=== PATIENT | male | born 1935 | race Caucasian/White ===

== ENCOUNTER 2017-10-07 08:46 | Day surgery (SDC) | payer BC ==
[2017-09-30 14:30] LABS: BASOPHILS # (AUTO) 0.1 X10'3 (0-0.2); BASOPHILS % (AUTO) 0.8 % (0-1); EOSINOPHILS # (AUTO) 0.8 X10'3 (0-0.9); EOSINOPHILS % (AUTO) 11.5 % (0-6); LYMPHOCYTES # (AUTO) 1.5 X10'3 (1.1-4.8); LYMPHOCYTES % (AUTO) 20.7 % (21-51); MEAN CORPUSCULAR HEMOGLOBIN 32.6 PG (27.0-31.0); MEAN PLATELET VOLUME 7.8 FL (7.4-10.4); MONOCYTES # (AUTO) 0.5 X10'3 (0-0.9); MONOCYTES % (AUTO) 6.6 % (2-12); NEUTROPHILS # (AUTO) 4.3 X10'3 (1.8-7.7); NEUTROPHILS % (AUTO) 60.4 % (42-75); PRE OP HEMATOCRIT 48.1 % (42.0-52.0); PRE OP HEMOGLOBIN 16.4 g/dL (14.0-17.9); PRE OP PLATELET COUNT 234 X10'3 (140-440); RED BLOOD COUNT 5.01 X10'6 (4.70-6.10); RED CELL DISTRIBUTION WIDTH 12.6 % (11.5-14.5)
[2017-09-30 14:41] LABS: PRE OP PROTIME 26.5 SECONDS (9.0-12.0)
[2017-09-30 14:44] LABS: ALBUMIN 3.9 G/DL (3.4-5.0); ALBUMIN/GLOBULIN RATIO 1.1 (1.1-1.5); ALKALINE PHOSPHATASE 80 IU/L (46-116); BLOOD UREA NITROGEN 31 MG/DL (7-18); BUN/CREATININE RATIO 19.4 (5.4-32.0); CALCIUM 8.7 MG/DL (8.5-10.1); CHLORIDE 104 MMOL/L (99-107); PRE OP ALT 64 U/L (30-65); PRE OP ANION GAP 6 (8-16); PRE OP AST 40 U/L (10-37); PRE OP BILIRUB, TOTAL 0.7 MG/DL (0.0-1.0); PRE OP GLUCOSE 112 MG/DL (70-104); PRE OP POTASSIUM 4.3 MMOL/L (3.4-5.1); PRE OP SODIUM 139 MMOL/L (135-145); TOTAL CARBON DIOXIDE 29.4 MMOL/L (24-32); TOTAL PROTEIN 7.5 G/DL (6.4-8.2); eGFR 42 ML/MIN
[2017-09-30 14:56] LABS: PRE OP INR 2.7 INR
[~2017-10-07] VITALS: Ht 177.8 cm; Wt 85.5 kg
[~2017-10-07 08:46] MED LIST: ACET-2319 PO; BISO1TAB4 PO; CHOL10002 PO; DABI75CA3 PO; DOCUMENT DATE & TIME OF BETA-BLOCKER PO ONE; DRON400T2 PO; EZET1TAB33 PO; FAMC500T18 PO; MAGN400C PO; MULT-1074 PO; TEST200V10 IM; ceFAZolin 2gm in dextrose, iso 100 ML IV ONE; famotidine 20mg tablet PO ONE; ringers solution, lacted 1,000 ML IV SCH
[2017-10-07 09:05] VITALS: BP 155/87
[2017-10-07] MEDS ORDERED: LIDOcaine 0.5% (5mg/ml) 50ml vial ONE (09:39)
[2017-10-07] MEDS ORDERED: ringers solution, lacted 1,000 ML IV SCH (09:44)
[2017-10-07] MEDS ORDERED: meperidine/PF 25mg/ml syringe IV PRN ×2 (09:45)
[2017-10-07] MEDS ORDERED: labetalol 20mg/4ml (5mg/ml) syringe IV PRN (09:45)
[2017-10-07] MEDS ORDERED: hydrALAZINE 20mg/ml inj. IV PRN (09:45)
[2017-10-07] MEDS ORDERED: ondansetron/PF 4mg/2ml inj IV PRN (09:45)
[2017-10-07 09:51] LABS: INR 1.4 INR; PARTIAL THROMBOPLASTIN TIME 46 SECONDS (22-32); PROTHROMBIN TIME 14.7 SECONDS (9.0-12.0)
[2017-10-07] MEDS ORDERED: LIDOcaine 1% (10mg/ml) 2ml vial ONE (09:59)
[2017-10-07] MEDS ORDERED: BUPIVAcaine/PF 2.5 mg/ml (0.25%) 30ml vial ONE ×2 (10:16→10:18)
[2017-10-07] MEDS ORDERED: fentaNYL/PF 50MCG/1 ML 2ML syringe ONE (10:28)
[2017-10-07] MEDS ORDERED: midazolam 2 mg/2 ml injection ONE ×2 (10:28)
[2017-10-07 11:00] VITALS: BP 133/83
[2017-10-07 11:10] VITALS: BP 135/85
[2017-10-07 11:20] VITALS: BP 137/90
[2017-10-07 11:30] VITALS: BP 158/80
== END 2017-10-07 11:40 | disposition home or self-care (01) ==
LOC: PAS 08:46
PROVIDERS: ATTEND Orthopaedic Surgery Hand Surgery
DX: G56.02 Carpal tunnel syndrome, left upper limb (principal); M65.332 Trigger finger, left middle finger; I10 Essential (primary) hypertension; Z95.0 Presence of cardiac pacemaker; Z88.6 Allergy status to analgesic agent; Z79.01 Long term (current) use of anticoagulants; Z79.899 Other long term (current) drug therapy; Z95.5 Presence of coronary angioplasty implant and graft; Z98.890 Other specified postprocedural states; Z87.891 Personal history of nicotine dependence; Z72.89 Other problems related to lifestyle; Z88.8 Allergy status to other drugs, medicaments and biological substances; Z85.51 Personal history of malignant neoplasm of bladder; Z92.3 Personal history of irradiation
CPT/HCPCS: 26055; 36415; 64721; 71046; 80053; 85025; 85610; 85730; 93005; A6222; A6449; J0690; J2001; J2250; J3010; J3490; J7120

== ENCOUNTER 2018-06-30 09:18 | Day surgery (SDC) | payer MEDICARE, BC ==
[2018-06-29 15:10] LABS: BASOPHILS # (AUTO) 0.1 X10'3 (0-0.2); BASOPHILS % (AUTO) 0.8 % (0-1); EOSINOPHILS # (AUTO) 0.9 X10'3 (0-0.9); EOSINOPHILS % (AUTO) 13.5 % (0-6); LYMPHOCYTES # (AUTO) 1.3 X10'3 (1.1-4.8); LYMPHOCYTES % (AUTO) 19.3 % (21-51); MEAN CORPUSCULAR HEMOGLOBIN 34.2 PG (27.0-31.0); MEAN CORPUSCULAR VOLUME 97.5 FL (78-98); MEAN PLATELET VOLUME 8.1 FL (7.4-10.4); MONOCYTES # (AUTO) 0.7 X10'3 (0-0.9); MONOCYTES % (AUTO) 9.7 % (2-12); NEUTROPHILS # (AUTO) 3.9 X10'3 (1.8-7.7); NEUTROPHILS % (AUTO) 56.7 % (42-75); PRE OP HEMATOCRIT 45.8 % (42.0-52.0); PRE OP PLATELET COUNT 223 X10'3 (140-440); RED BLOOD COUNT 4.69 X10'6 (4.70-6.10); RED CELL DISTRIBUTION WIDTH 12.3 % (11.5-14.5)
[2018-06-29 15:19] LABS: INR 2.6 INR; PROTHROMBIN TIME 26.1 SECONDS (9.0-12.0)
[2018-06-29 15:20] LABS: PRE OP PARTIAL THROMB. TIME 55 SECONDS (22-35)
[2018-06-29 15:24] LABS: ALBUMIN 3.4 G/DL (3.4-5.0); ALKALINE PHOSPHATASE 114 IU/L (46-116); BLOOD UREA NITROGEN 28 MG/DL (7-18); BUN/CREATININE RATIO 16.1 (5.4-32.0); CALCIUM 8.4 MG/DL (8.5-10.1); CHLORIDE 105 MMOL/L (99-107); CREATININE 1.74 MG/DL (0.60-1.10); PRE OP ALT 41 U/L (30-65); PRE OP ANION GAP 6 (8-16); PRE OP AST 25 U/L (10-37); PRE OP BILIRUB, TOTAL 0.8 MG/DL (0.0-1.0); PRE OP GLUCOSE 76 MG/DL (70-104); PRE OP POTASSIUM 4.3 MMOL/L (3.4-5.1); PRE OP SODIUM 142 MMOL/L (135-145); TOTAL CARBON DIOXIDE 30.7 MMOL/L (24-32); TOTAL PROTEIN 6.8 G/DL (6.4-8.2); eGFR 38 ML/MIN
[~2018-06-30] VITALS: Ht 180.3 cm; Wt 83.4 kg
[~2018-06-30 09:18] MED LIST changes: -DOCUMENT DATE & TIME OF BETA-BLOCKER PO ONE; +LIDOcaine 0.5% (5mg/ml) 50ml vial ONE; -MAGN400C PO; -MULT-1074 PO; -ceFAZolin 2gm in dextrose, iso 100 ML IV ONE; -famotidine 20mg tablet PO ONE; -ringers solution, lacted 1,000 ML IV SCH
[2018-06-30] MEDS ORDERED: ringers solution, lacted 1,000 ML IV SCH (10:13)
[2018-06-30] MEDS ORDERED: famotidine 20mg tablet PO ONE (10:13)
[2018-06-30] MEDS ORDERED: cefazolin/dext.iso 2gm/100 ML IV ONE (10:13)
[2018-06-30] MEDS ORDERED: LIDOcaine 1% (10mg/ml) 2ml vial ONE (10:21)
[2018-06-30 11:28] VITALS: BP 136/82
[2018-06-30 11:31] VITALS: BP 136/82
[2018-06-30] MEDS ORDERED: midazolam 2 mg/2 ml injection ONE (11:54)
[2018-06-30] MEDS ORDERED: fentaNYL/PF 50MCG/1 ML 2ML syringe ONE (11:54)
[2018-06-30] MEDS ORDERED: BUPIVAcaine/PF 2.5mg/ml (0.25%) 10ml vial ONE (12:04)
[2018-06-30 12:22] VITALS: BP 157/66
[2018-06-30 12:32] VITALS: BP 140/85
[2018-06-30 12:42] VITALS: BP 135/82
== END 2018-06-30 12:52 | disposition home or self-care (01) ==
LOC: PAS 09:18
PROVIDERS: ATTEND Orthopaedic Surgery Hand Surgery
DX: G56.01 Carpal tunnel syndrome, right upper limb (principal); Z87.891 Personal history of nicotine dependence; Z88.8 Allergy status to other drugs, medicaments and biological substances; Z98.890 Other specified postprocedural states
CPT/HCPCS: 36415; 64721; 80053; 85025; 85610; 85730; 93005; A6449; J0690; J2001; J2250; J3010; J3490; J7120

== ENCOUNTER 2019-09-24 11:12 | Day surgery (SDC) | payer MEDICARE, BC ==
[~2019-09-24] VITALS: Ht 177.8 cm; Wt 85.6 kg
[~2019-09-24 11:12] MED LIST changes: -LIDOcaine 0.5% (5mg/ml) 50ml vial ONE
[2019-09-24 11:41] VITALS: BP 157/90
[2019-09-24] MEDS ORDERED: normal saline 1000ml 1,000 ML IV SCH (11:45)
[2019-09-24] MEDS ORDERED: FLEC100T2 PO (11:51)
[2019-09-24] MEDS ORDERED: MAGN400T39 PO (11:51)
[2019-09-24 12:37] LABS: BASOPHILS # (AUTO) 0.1 X10'3 (0-0.2); BASOPHILS % (AUTO) 0.8 % (0-1); EOSINOPHILS # (AUTO) 0.1 X10'3 (0-0.9); EOSINOPHILS % (AUTO) 1.9 % (0-6); HEMATOCRIT 51.6 % (42.0-52.0); HEMOGLOBIN 17.3 g/dl (14.0-17.9); LYMPHOCYTES # (AUTO) 1.1 X10'3 (1.1-4.8); LYMPHOCYTES % (AUTO) 14.2 % (21-51); MEAN CORPUSCULAR HEMOGLOBIN 33.3 PG (27.0-31.0); MEAN CORPUSCULAR HGB CONC 33.5 g/dL (33.0-36.5); MEAN CORPUSCULAR VOLUME 99.3 FL (78-98); MEAN PLATELET VOLUME 7.5 FL (7.4-10.4); MONOCYTES # (AUTO) 0.6 X10'3 (0-0.9); NEUTROPHILS # (AUTO) 5.9 X10'3 (1.8-7.7); NEUTROPHILS % (AUTO) 75.1 % (42-75); PLATELET COUNT 171 X10'3 (140-440); WHITE BLOOD COUNT 7.8 X10'3 (4.5-11.0)
[2019-09-24 12:46] LABS: ALBUMIN 3.8 G/DL (3.4-5.0); ANION GAP 6 (8-16); BLOOD UREA NITROGEN 23 MG/DL (7-18); BUN/CREATININE RATIO 12.6 (5.4-32.0); CALCIUM 9.3 MG/DL (8.5-10.1); CHLORIDE 104 MMOL/L (99-107); CREATININE 1.83 MG/DL (0.60-1.10); GLUCOSE 66 MG/DL (70-104); SODIUM 142 MMOL/L (135-145); eGFR 36 ML/MIN
[2019-09-24] MEDS ORDERED: vancomycin 1,000mg inj ONE (14:11)
[2019-09-24] MEDS ORDERED: ceFAZolin 1000mg inj ONE (14:11)
[2019-09-24] MEDS ORDERED: LIDOcaine 1% W/epiNEPHrine 1:100,000 20ml vial ONE (14:11)
[2019-09-24] MEDS ORDERED: iohexol 350MG/ML 100ml bottle IV ONE (14:26)
[2019-09-24] MEDS ORDERED: fentaNYL/PF 50MCG/1 ML 2ML syringe ONE ×3 (14:30→15:12)
[2019-09-24] MEDS ORDERED: midazolam 2 mg/2 ml injection ONE ×3 (14:30→15:12)
[2019-09-24] MEDS ORDERED: proCHLORperazine 10 MG/2 ml inj ONE (14:30)
[2019-09-24] MEDS ORDERED: iohexol 350 MG/ML 50ML vial IV ONE (14:37)
[2019-09-24 16:40] VITALS: BP 139/72
[2019-09-24 17:04] VITALS: BP 153/97
[2019-09-24 17:12] VITALS: BP 159/99
[2019-09-24 17:27] VITALS: BP 155/87
[2019-09-24 17:42] VITALS: BP 146/79
== END 2019-09-24 18:35 | disposition home or self-care (01) ==
LOC: SSTAY O 11:12
PROVIDERS: ATTEND Internal Medicine Cardiovascular Disease
DX: I44.2 Atrioventricular block, complete (principal); I25.10 Atherosclerotic heart disease of native coronary artery without angina pectoris; I48.0 Paroxysmal atrial fibrillation; I49.8 Other specified cardiac arrhythmias; E78.5 Hyperlipidemia, unspecified; Z98.890 Other specified postprocedural states; Z96.653 Presence of artificial knee joint, bilateral; Z95.0 Presence of cardiac pacemaker; Z72.89 Other problems related to lifestyle; Z79.899 Other long term (current) drug therapy; Z79.82 Long term (current) use of aspirin; Z88.1 Allergy status to other antibiotic agents; Z88.8 Allergy status to other drugs, medicaments and biological substances
CPT/HCPCS: 33225; 33229; 36415; 71045; 80048; 83735; 85025; 85610; 93005; 99152; 99153; C1769; C1882; C1887; C1894; C1900; J0690; J0780; J2250; J3010; J3370; J7030; J7050; Q9967; 33221; A4565; A4620; A6258; A6449

== ENCOUNTER 2020-08-19 08:44 | Observation (INO) | payer BC, MEDICARE ==
[2020-08-19] VITALS (10 sets, daily range): BP systolic 121–147; BP diastolic 62–79
[~2020-08-19] VITALS: Ht 175.3 cm; Wt 86.5 kg
[~2020-08-19 08:44] MED LIST changes: +AMLO5TAB16 PO; +CLOP75TA35 PO; -DRON400T2 PO; -FAMC500T18 PO; +FAMC500T23 PO; +FLEC100T2 PO; +MAGN400T39 PO
[2020-08-19 09:23] LABS: BASOPHILS # (AUTO) 0.1 X10'3 (0-0.2); BASOPHILS % (AUTO) 0.7 % (0-1); EOSINOPHILS # (AUTO) 0.1 X10'3 (0-0.9); EOSINOPHILS % (AUTO) 0.9 % (0-6); HEMATOCRIT 42.4 % (42.0-52.0); HEMOGLOBIN 14.4 g/dl (14.0-17.9); LYMPHOCYTES # (AUTO) 0.7 X10'3 (1.1-4.8); LYMPHOCYTES % (AUTO) 7.5 % (21-51); MEAN CORPUSCULAR HEMOGLOBIN 33.9 PG (27.0-31.0); MEAN CORPUSCULAR HGB CONC 33.9 g/dL (33.0-36.5); MEAN PLATELET VOLUME 7.7 FL (7.4-10.4); MONOCYTES % (AUTO) 11.2 % (2-12); NEUTROPHILS # (AUTO) 7.4 X10'3 (1.8-7.7); NEUTROPHILS % (AUTO) 79.7 % (42-75); PLATELET COUNT 223 X10'3 (140-440); RED BLOOD COUNT 4.25 X10'6 (4.70-6.10); RED CELL DISTRIBUTION WIDTH 12.7 % (11.5-14.5); WHITE BLOOD COUNT 9.3 X10'3 (4.5-11.0)
[2020-08-19 09:57] LABS: ALANINE AMINOTRANSFERASE 49 U/L (12-78); ALBUMIN 3.3 G/DL (3.4-5.0); ALBUMIN/GLOBULIN RATIO 0.9 (1.1-1.5); ALKALINE PHOSPHATASE 108 IU/L (46-116); ANION GAP 10 (8-16); ASPARTATE AMINO TRANSFERASE 40 U/L (10-37); BILIRUBIN,TOTAL 1.7 MG/DL (0.1-1.0); BLOOD UREA NITROGEN 44 MG/DL (7-18); BUN/CREATININE RATIO 21.8 (5.4-32.0); CHLORIDE 102 MMOL/L (99-107); CREATININE 2.02 MG/DL (0.60-1.10); GLUCOSE 102 MG/DL (70-104); POTASSIUM 3.8 MMOL/L (3.5-5.1); SODIUM 137 MMOL/L (135-145); TOTAL CARBON DIOXIDE 25.5 MMOL/L (24-32); TOTAL PROTEIN 6.9 G/DL (6.4-8.2); eGFR 32 ML/MIN
[2020-08-19] MEDS ORDERED: morphine 2 MG/ML inj. syringe IV PRN ×2 (10:40)
[2020-08-19] MEDS ORDERED: magnesium hydroxide 30ml (MOM) UD suspension PO PRN (10:40)
[2020-08-19] MEDS ORDERED: ondansetron/PF 4mg/2ml inj IV PRN ×2 (10:40→14:00)
[2020-08-19] MEDS ORDERED: acetaminophen 325mg tablet PO PRN ×2 (10:40)
[2020-08-19] MEDS ORDERED: nitroGLYCERIN 0.4mg SUBLingual tab SL PRN (10:40)
[2020-08-19] MEDS ORDERED: mag hydrox/Alum hydrox/simeth 30ml oral suspension PO PRN (10:40)
[2020-08-19] MEDS ORDERED: HYDR-4070 PO (11:17)
[2020-08-19] MEDS ORDERED: EZET1TAB70 PO (11:17)
[2020-08-19] MEDS ORDERED: TAFA61CA PO (11:17)
[2020-08-19] MEDS ORDERED: BUME0.5T6 PO (11:17)
[2020-08-19] MEDS ORDERED: FAMC500T3 PO (11:17)
[2020-08-19] MEDS ORDERED: BISO-1 PO (11:17)
[2020-08-19] MEDS ORDERED: LEVO50TA8 PO (11:17)
[2020-08-19] MEDS ORDERED: TAZA30CR TOP (11:17)
[2020-08-19] MEDS ORDERED: ISOS60TA4 PO (11:17)
[2020-08-19] MEDS ORDERED: CLOP75TA33 PO (11:17)
[2020-08-19] MEDS ORDERED: AMIO200T61 PO (11:17)
[2020-08-19] MEDS ORDERED: ASPI-611 PO (11:23)
[2020-08-19] MEDS ORDERED: MAGN400T39 PO (11:23)
[2020-08-19] MEDS ORDERED: CHOL50004 PO (11:23)
[2020-08-19] MEDS ORDERED: TEST200V10 IM (11:23)
[2020-08-19] MEDS ORDERED: midazolam 2 mg/2 ml injection ONE (11:28)
[2020-08-19] MEDS ORDERED: LIDOcaine 1% (10mg/ml)w/preservative injection 20ml MDV ONE (11:28)
[2020-08-19] MEDS ORDERED: fentaNYL/PF 50MCG/1 ML 2ML syringe ONE (11:28)
[2020-08-19] MEDS ORDERED: heparin 1,000unit/ml 10ml vial 10 ML ONE (11:28)
[2020-08-19] MEDS ORDERED: iohexol 350MG/ML 100ml bottle IV ONE ×2 (11:28→12:36)
[2020-08-19] MEDS ORDERED: iohexol 350 MG/ML 50ML vial IV ONE (11:28)
[2020-08-19] MEDS ORDERED: nitroGLYCERIN-Tridil 50MG/D5W 250 ML IV ONE (13:02)
[2020-08-19] MEDS ORDERED: proCHLORperazine 10 MG/2 ml inj IV PRN (14:00)
[2020-08-19] MEDS: normal saline 1000ml 1,000 ML IV SCH ×2 (14:00→20:06)
[2020-08-19] MEDS ORDERED: HYDROcodone/acetaminophen 10/325mg tab PO PRN (14:10)
[2020-08-19] MEDS ORDERED: HYDROcodone/acetaminophen 5mg/325mg tablet PO PRN (14:10)
--- NOTE | 2020-08-19 15:03 | NUR ---
Report called to GUSTABO Lloyd. Pt to be transported to [facility] room 311.
--- NOTE | 2020-08-19 15:10 | NUR ---
Pt transported via gurney to [facility] room 311 with all belongings, including phone & glasses. Pt alert, oriented & in no acute distress at time of transfer. R groin site soft, no bleeding or hematoma at time of transfer. VSS.
--- NOTE | 2020-08-19 18:18 | NUR ---
Problems reprioritized. Patient report given, questions answered & plan of care reviewed with Marianna MONTEJO.
--- NOTE | 2020-08-19 18:19 | NUR ---
Patient in room MED 311. I have received report from GUSTABO Lloyd and had the opportunity to ask questions and assume patient care.
[2020-08-19] MEDS ORDERED: hydrALAZINE 25 MG tablet PO SCH (21:00)
[2020-08-20 02:00] VITALS: BP 129/72
[2020-08-20] MEDS: normal saline 1000ml 1,000 ML IV SCH (02:10)
[2020-08-20 05:58] LABS: BASOPHILS % (AUTO) 0.5 % (0-1); EOSINOPHILS % (AUTO) 0.3 % (0-6); HEMOGLOBIN 14.2 g/dl (14.0-17.9); LYMPHOCYTES % (AUTO) 11.2 % (21-51); MEAN CORPUSCULAR HEMOGLOBIN 34.5 PG (27.0-31.0); MEAN CORPUSCULAR HGB CONC 33.9 g/dL (33.0-36.5); MEAN CORPUSCULAR VOLUME 101.9 FL (78-98); MEAN PLATELET VOLUME 7.6 FL (7.4-10.4); MONOCYTES # (AUTO) 1.1 X10'3 (0-0.9); MONOCYTES % (AUTO) 12.9 % (2-12); NEUTROPHILS # (AUTO) 6.4 X10'3 (1.8-7.7); NEUTROPHILS % (AUTO) 75.1 % (42-75); PLATELET COUNT 207 X10'3 (140-440); RED BLOOD COUNT 4.12 X10'6 (4.70-6.10); RED CELL DISTRIBUTION WIDTH 12.9 % (11.5-14.5); WHITE BLOOD COUNT 8.6 X10'3 (4.5-11.0)
[2020-08-20 06:00] VITALS: BP 152/83
[2020-08-20 06:08] LABS: ANION GAP 10 (8-16); BLOOD UREA NITROGEN 43 MG/DL (7-18); BUN/CREATININE RATIO 21.5 (5.4-32.0); CALCIUM 8.9 MG/DL (8.5-10.1); CHLORIDE 105 MMOL/L (99-107); CHOL/HDL RATIO 2.1 (0.00-4.99); CHOLESTEROL 62 MG/DL (0-200); GLUCOSE 114 MG/DL (70-104); HDL CHOLESTEROL 29 MG/DL (35-60); LDL CHOLESTEROL 30 MG/DL (50-100); POTASSIUM 3.8 MMOL/L (3.5-5.1); SODIUM 139 MMOL/L (135-145); TOTAL CARBON DIOXIDE 23.7 MMOL/L (24-32); TRIGLYCERIDES 41 MG/DL (20-135); eGFR 32 ML/MIN
--- NOTE | 2020-08-20 06:18 | NUR ---
Problems reprioritized. Patient report given, questions answered & plan of care reviewed with GUSTABO Parekh.
--- NOTE | 2020-08-20 06:39 | NUR ---
Patient in room MED 311. I have received report from GUSTABO Cabral and had the opportunity to ask questions and assume patient care.
[2020-08-20] MEDS ORDERED: levoTHYROXINE 25mcg tablet PO SCH (07:30)
[2020-08-20] MEDS ORDERED: isosorbide mononitrate 30mg tab.SR.24H PO SCH (08:00)
[2020-08-20] MEDS ORDERED: atenolol 50mg tablet PO SCH (08:00)
[2020-08-20] MEDS ORDERED: vitamin D (cholecalciferol) 1,000 unit tablet PO SCH (08:00)
[2020-08-20] MEDS ORDERED: amiodarone 100mg tablet PO SCH (08:00)
[2020-08-20] MEDS ORDERED: aspirin 81mg tablet.DR PO SCH (08:00)
[2020-08-20] MEDS ORDERED: clopidogrel 75mg tablet PO SCH (08:00)
[2020-08-20] MEDS ORDERED: aspirin 81mg tab.chew PO SCH (08:00)
[2020-08-20] MEDS ORDERED: bumetanide 1mg tablet PO SCH (08:00)
[2020-08-20] MEDS ORDERED: HYDROchlorothiazide 25mg tablet PO SCH (08:00)
[2020-08-20] MEDS ORDERED: magnesium oxide 400mg tablet PO SCH (08:00)
[2020-08-20] MEDS ORDERED: atorvastatin 20mg tablet PO SCH (08:00)
[2020-08-20] MEDS ORDERED: ezetimibe 10mg tablet PO SCH (08:00)
--- NOTE | 2020-08-20 10:42 | NUR ---
Pt Discharged home per Dr Garvey. Pt walked 2 laps prior discharge without c/o chest pain or SOB. Pt refused all medication this morning, aware. IV, and monitor removed. Pt was escorted to main lobby on w/c. Left the hospital via private vehicle accompanied by family member.
[2020-08-25] MEDS ORDERED: TESTOSTERONE CYPIONATE 200 MG/ML VIAL IM SCH (08:00)
== END 2020-08-20 09:29 | disposition home or self-care (01) ==
LOC: ER 08:44 → ED HOLD 10:36 → PACU 13:58 → ED HOLD 14:01 → MED 3N 15:38
PROVIDERS: ADMIT Internal Medicine; ATTEND Internal Medicine
DX: R07.89 Other chest pain (principal); I25.10 Atherosclerotic heart disease of native coronary artery without angina pectoris; I48.0 Paroxysmal atrial fibrillation; I12.9 Hypertensive chronic kidney disease with stage 1 through stage 4 chronic kidney disease, or unspecified chronic kidney disease; N18.30 Chronic kidney disease, stage 3 unspecified; N17.9 Acute kidney failure, unspecified; I27.20 Pulmonary hypertension, unspecified; E78.5 Hyperlipidemia, unspecified; I25.2 Old myocardial infarction; Z87.891 Personal history of nicotine dependence; Z79.899 Other long term (current) drug therapy; Z95.0 Presence of cardiac pacemaker; Z95.5 Presence of coronary angioplasty implant and graft; Z79.82 Long term (current) use of aspirin; Z85.47 Personal history of malignant neoplasm of testis; Z79.02 Long term (current) use of antithrombotics/antiplatelets
CPT/HCPCS: 36415; 71045; 80048; 80053; 80061; 83880; 84484; 85025; 87081; 93005; 93306; 93454; 96360; 96361; 99285; C1725; C1751; C1760; C1769; C1874; C1894; C9600; G0378; J1644; J2001; J2250; J3010; J7030; Q9967; 99152; 99153; A4620; A6258; J3490